=== PATIENT | female | born 1945 | race Caucasian/White ===

== ENCOUNTER 2016-08-31 20:03 | Inpatient (IN) | payer MEDICARE, OTHER ==
--- NOTE | ~2016-08-31 | DS ---
Discharge Summary [facility] [address] [place]. [address] NAME: JD MACARIO : 43 STATUS : DIS IN PAT#: [id number] AGE: 71 ADM/REG DATE : 08/31/16 MR#: [id number] REPORT SERV DATE: 09/04/16 DICTATED BY: JON WEEMS DATE: 09/03/16 REPORT STATUS : Draft TRANSCRIBED BY: MODL DATE: 09/03/16 ADMISSION DATE: 08/31/2016 DISCHARGE DATE: 09/03/2016 CONDITION ON DISCHARGE: Stable. DISPOSITION: Discharged to home with home health. The patient will be going home on the following new prescriptions and new equipment: 1. Nebulizer machine with tubing and mask and DuoNeb for nebulizer use q.4 hours p.r.n., a prescription for the above has been given. A bedside commode, a prescription for the above has been given as the patient has difficulty walking from COPD. 2. Other new medications include Bumex 1 mg once a day for chronic systolic and diastolic dysfunction of the heart and volume overload and diltiazem CD 120 mg p.o. daily #30, which she will continue for an episode of atrial fibrillation, that she had in the hospital that resolved with the Cardizem. 3. Other medications will also include Diflucan 150 mg p.o. daily for three days and this is for her generalized ring warm like rash and also her groin area rash and vaginal candidiasis. 4. Clotrimazole cream, apply b.i.d. for 14 days for the ringworm. DIAGNOSES ON DISCHARGE: Include: 1. Acute hypercapnic respiratory failure, this has resolved. Acute hypoxic respiratory failure - resolved. Chronic hypoxic respiratory failure from COPD in a nonsmoker - patient is chronically on 2 L of oxygen at home. 2. Chronic mild systolic and diastolic dysfunction of the heart which is stable. However, echocardiogram shows normal ejection fraction. Hence, this is probably HFpEF or heart failure with preserved ejection fraction - patient is doing well with a low dose of diuretics for this. 3. One episode of intermittent atrial fibrillation that resolved after Cardizem. Hence, the patient will be going home on p.o. diltiazem CD, which has kept her heart rate nicely controlled and the patient is not in atrial fibrillation anymore even though she has a few PVCs. 4. Acute encephalopathy upon admission, which completely resolved. 5. Other chronic medical issues include coronary artery disease, diabetes, hypercholesterolemia, hypertension, which are all stable. 6. A ringworm that seems to be somewhat generalized along with tinea cruris and some vaginal candidiasis according to patient, for which she is being treated with clotrimazole cream and Diflucan. This could be because the patient has been on antibiotics for sometime and also is diabetic and hence the reason for the above, but she is being treated as mentioned above. BRIEF HOSPITAL COURSE: Ms. Jd Macario is a 71-year-old white female patient, who was admitted with signs and symptoms as outlined in history and physical exam. Essentially, she was admitted with acute on chronic hypoxic respiratory failure. She was also found to be hypercapnic and with encephalopathy. Hence, she was admitted for a little while in the unit Discharge Summary [address] [address] NAME: JD MACARIO : 43 STATUS : DIS IN PAT#: [id number] AGE: 71 ADM/REG DATE : 08/31/16 MR#: [id number] REPORT SERV DATE: 09/04/16 DICTATED BY: JON WEEMS DATE: 09/03/16 REPORT STATUS : Draft TRANSCRIBED BY: ELMER DATE: 09/03/16 watched and then transferred to medical floor in stable condition. The patient continued to do well on the floor with supplemental oxygen but had one episode of intermittent atrial fibrillation. She was briefly placed on Cardizem drip and this was promptly discontinued once her atrial fibrillation resolved. Currently, the patient is not in atrial fibrillation. She has been in sinus rhythm for the last 24 hours and has a few infrequent PVCs. The patient has been started on diltiazem CD 120 mg once a day, and with this, her heart rate is nicely controlled and she is not in atrial fibrillation and is in sinus rhythm now. The patient chronically stays on oxygen at home at 2 L/minute, and hence, she is being sent home on that. Initially, she also had some volume overload and hyponatremia and some renal insufficiency when she came in but this has all resolved now. Hence, the patient is being sent home on the following medications: 1. As mentioned above. The new medications will be as dictated above, but in addition to this, her regular old medications will include:. 2. Aspirin 81 mg once a day. 3. Plavix 75 mg once a day. 4. Colace 100 mg p.o. b.i.d. 5. Prozac 60 mg once a day. 6. Levemir insulin 40 units subcu at bedtime and NovoLog sliding scale insulin. 7. Imdur 30 mg once a day. 8. Metoclopramide 10 mg p.o. daily. 9. Lopressor 50 mg p.o. q.p.m. 10.Protonix 40 mg p.o. b.i.d. 11.Spiriva as directed. 12.ProAir as directed. 13.Dulera 200/5 two puffs twice a day. 14.Roxicodone 5 mg p.o. q.6 hours p.r.n. In addition to this, the patient will also be on the following chronic medications: Bumex 1 mg once in the morning and diltiazem CD 120 mg once in the morning. She has done well with this medication regimen and hence a copy of this summary is to be sent to her PCP and also Dr. Osuna. I have spent about 40 minutes in coordinating discharge care of this patient including face- to-face encounter. At this time, her most recent labs show the following: Her CBC on 09/02/2016 shows a WBC count of 5.1, hemoglobin 8.5, hematocrit 30.4, and platelet count of 303. Her electrolyte profile shows a sodium of 134, a potassium 3.7, BUN 11, creatinine 0.9. The patient has chronic hyponatremia and now it is fairly stable at 134. Her BNP came down nicely and on 09/02/2016 it is 108. Again, her renal function profile that was repeated shows a sodium of 136, now BUN is 11, creatinine is 0.9. Magnesium is normal. Phosphorus is normal. She is being sent home in stable condition with home health nursing and with advice to follow up with Dr. Osuna as scheduled before. Discharge Summary [facility] [address] [place]. [address] NAME: JD MACARIO : 43 STATUS : DIS IN PAT#: [id number] AGE: 71 ADM/REG DATE : 08/31/16 MR#: [id number] REPORT SERV DATE: 09/04/16 DICTATED BY: JON EWEMS DATE: 09/03/16 REPORT STATUS : Draft TRANSCRIBED BY: ELMER DATE: 09/03/16 DANIELLA/ELMER Jon Weems M.D. / [id number] CC: Noe Juarez M.D.
--- NOTE | ~2016-08-31 | HP ---
History And Physical [facility] [address] [place]. [address] NAME: JANA MACARIO : 43 STATUS : ADM IN [facility]#: [id number] AGE: 71 ADM/REG DATE : 08/31/16 MR#: [id number] REPORT SERV DATE: 08/31/16 DICTATED BY: SATISH OSUNA DATE: 08/31/16 REPORT STATUS : Draft TRANSCRIBED BY: MODTyler DATE: 08/31/16 DATE OF ADMISSION: 08/31/2016 REASON FOR ADMISSION: Acute hypercapnic respiratory failure. HISTORY OF PRESENT ILLNESS: Ms. Macario is known to our practice. She is followed in our office and has had hospitalizations before because of problems with fluid overload and congestive heart failure. She has chronic obstructive lung disease, not associated with smoking and systolic diastolic congestive heart failure with chronic hypoxemia. She had been doing well earlier this week, developed a bit of a cough two days ago, but was still fine. Starting on the evening 24 hours before admission, she complained of more shortness of breath, and since then had become more hypoxic, more short of breath, and actually became somewhat encephalopathic and poorly responsive. She was taken to an outside hospital, where she was found to be hypercapnic and hypoxemic and started on BiPAP with improvement of her oxygenation and mental status. PAST MEDICAL HISTORY: Significant for coronary artery disease, chronic obstructive lung disease, CHF, ischemic cardiomyopathy, diabetes, hypercholesterolemia, and hypertension. REVIEW OF SYSTEMS: Her review of 10 systems was performed with help of her family who was at the bedside. SOCIAL HISTORY: Significant for remote short tobacco use. No alcohol abuse. FAMILY HISTORY: Noncontributory to this acute presentation. PHYSICAL EXAMINATION: GENERAL: She is awake and alert with stable vital signs, on BiPAP. HEENT: Normocephalic and atraumatic. NECK: Supple. No lymphadenopathy. No JVD. CHEST: Symmetric with good expansion bilaterally. She has occasional bilateral crackles with some crackles on the right base. CARDIOVASCULAR: She has S1 and S2, which are regular rate and rhythm. ABDOMEN: Benign. EXTREMITIES: She has no edema, no clubbing, no cyanosis. ASSESSMENT AND PLAN: 1. Respiratory failure. The patient has acute on chronic hypercapnic hypoxemic respiratory failure associated with fluid overload. She has been retaining more fluid at home and has a new right effusion. We have kept the patient on BiPAP and started her on diuretics and therapy for acute bronchitis. She is already doing better with improved arterial blood gas on her last blood gas prior to transfer. She has been started on deep venous thrombosis and gastrointestinal prophylaxis, and we will try and start weaning her off BiPAP in the morning. Care was discussed with the patient and her family, who was at the bedside. History And Physical [address] [address] NAME: JANA MACARIO : 43 STATUS : ADM IN [facility]#: [id number] AGE: 71 ADM/REG DATE : 08/31/16 MR#: [id number] REPORT SERV DATE: 08/31/16 DICTATED BY: SATISH OSUNA DATE: 08/31/16 REPORT STATUS : Draft TRANSCRIBED BY: ELMER DATE: 08/31/16 BENITO/ELMER Satish Osuna M.D. / [id number] CC: Ronda Hilton MD UNKNOWN
[~2016-08-31 20:03] MED LIST: *UNABLE3; ACET500CAP PO; ADVAIR250 INH; ASA5GR PO; ASAB PO; ASABAYER PO; ASAEC PO; BENGAY TOP; CRESTOR10 PO; DALIRESP500 MCG PO; DIOV80 PO; DIOVAN40 MG PO; DSS PO; DULERA 200 MCG/13 GM INH; FAMVIR 500 MG500 MG PO; FORTAMET1000 MG PO; FORTAMET500 MG PO; GLUCOPHAGE1000 MG PO; HYDROCODONE/APAP; ICY HOT16 % TOP; IMDUR30 PO; INSULIN SC; JANUVIA100 MG PO; KLONO1 PO; KLONO2 PO; L20 PO; L40 PO; LANTUS SC; LEVAQUIN750 MG PO; LEVEMFLXPN SC; LEVEMIR SC; LIPITOR80 MG PO; LOP50 PO; MCZ25 PO; METFORMIN PO; MUCINEX600 MG PO; NORCO1 TA1 PO; NORCO1 TA2 PO; NOVOLOG SC; OXYCOD PO; OXYGEN; PLAVIX PO; PRILO PO; PROAIR HFA INH; PROTONIX PO; PROVENTSOL INH; PROZAC PO; PROZAC40 MG PO; REG PO; SPIRIVA INH; STOOL SOFTEN100 MG PO; VENTOLIN HFA INH; ZOFRAN4 PO; [UNRECOGNIZED DRUG - OTHER]
[2016-09-01 04:24] LABS: BASOPHILS 0.2 %; BASOPHILS ABSOLUTE 0.01 10/3/uL (0.0-0.16); EOSINOPHILS 3.4 %; EOSINOPHILS ABSOLUTE 0.17 10/3/uL (0.0-0.53); HEMATOCRIT 29.9 % (36.0-48.0); HEMOGLOBIN 8.2 g/dL (12.0-16.0); IMMATURE GRANULOCYTES 0.4 %; IMMATURE GRANULOCYTES ABSOLUTE 0.02 10/3/uL (0.0-0.11); LYMPHOCYTES 24.4 %; LYMPHOCYTES ABSOLUTE 1.23 10/3/uL (0.67-4.30); MEAN CORPUS HGB CONC 27.4 g/dL (32.0-36.0); MEAN CORPUSCULAR HEMOGLOB 24.7 pg (26.0-34.0); MEAN CORPUSCULAR VOLUME 90.1 fL (80-100); MEAN PLATELET VOLUME 10.1 fL (9.2-13.0); MONOCYTES 6.9 %; MONOCYTES ABSOLUTE 0.35 10/3/uL (0.21-1.20); NEUTROPHILS 64.7 %; NEUTROPHILS ABSOLUTE 3.26 10/3/uL (2.02-8.40); PLATELET COUNT 292 10/3/uL (150-400); RED CELL COUNT 3.32 10/6/uL (4.0-5.6)
[2016-09-01 04:26] LABS: MANUAL DIFF NO %
[2016-09-01 04:41] LABS: CALCIUM, SERUM 8.3 MG/DL (8.5-10.4); CHLORIDE, SERUM 92 MMOL/L (96-112); CREATININE 0.82 MG/DL (0.55-1.02); GFR AFRICAN AMERICAN 83 ML/MIN (>=60); GFR NON AFRICAN AMERICAN 71 ML/MIN (>=60); SODIUM, SERUM 137 MMOL/L (135-148)
[2016-09-01 04:44] LABS: BUN (BLOOD UREA NITROGEN) 10 MG/DL (6-23); CO2 (CARBON DIOXIDE) 38 MMOL/L (24-34); GLUCOSE, SERUM 134 MG/DL (60-99)
[2016-09-02 06:32] LABS: BASOPHILS 0.2 %; BASOPHILS ABSOLUTE 0.01 10/3/uL (0.0-0.16); EOSINOPHILS 4.1 %; EOSINOPHILS ABSOLUTE 0.21 10/3/uL (0.0-0.53); HEMATOCRIT 30.4 % (36.0-48.0); HEMOGLOBIN 8.5 g/dL (12.0-16.0); IMMATURE GRANULOCYTES 0.2 %; IMMATURE GRANULOCYTES ABSOLUTE 0.01 10/3/uL (0.0-0.11); LYMPHOCYTES 33.9 %; LYMPHOCYTES ABSOLUTE 1.72 10/3/uL (0.67-4.30); MEAN CORPUSCULAR HEMOGLOB 24.6 pg (26.0-34.0); MEAN CORPUSCULAR VOLUME 88.1 fL (80-100); MEAN PLATELET VOLUME 9.9 fL (9.2-13.0); MONOCYTES 8.1 %; MONOCYTES ABSOLUTE 0.41 10/3/uL (0.21-1.20); NEUTROPHILS 53.5 %; NEUTROPHILS ABSOLUTE 2.72 10/3/uL (2.02-8.40); PLATELET COUNT 303 10/3/uL (150-400); RBC DISTRIBUTION WIDTH 17.9 % (12.0-16.0); RED CELL COUNT 3.45 10/6/uL (4.0-5.6); WHITE BLOOD CELLS 5.1 10/3/uL (4.5-10.5)
[2016-09-02 06:33] LABS: MANUAL DIFF NO %
[2016-09-02 06:47] LABS: ALBUMIN 2.6 G/DL (3.5-5.0); BUN (BLOOD UREA NITROGEN) 11 MG/DL (6-23); CALCIUM, SERUM 8.5 MG/DL (8.5-10.4); CHLORIDE, SERUM 89 MMOL/L (96-112); CO2 (CARBON DIOXIDE) 37 MMOL/L (24-34); CREATININE 0.93 MG/DL (0.55-1.02); GFR AFRICAN AMERICAN 71 ML/MIN (>=60); GFR NON AFRICAN AMERICAN 61 ML/MIN (>=60); PHOSPHORUS, SERUM 3.3 MG/DL (2.5-4.5); POTASSIUM, SERUM 3.6 MMOL/L (3.5-5.3); SODIUM, SERUM 136 MMOL/L (135-148)
[2016-09-02 06:50] LABS: BUN (BLOOD UREA NITROGEN) 11 MG/DL (6-23); CALCIUM, SERUM 8.5 MG/DL (8.5-10.4); CHLORIDE, SERUM 90 MMOL/L (96-112); CO2 (CARBON DIOXIDE) 37 MMOL/L (24-34); CREATININE 0.95 MG/DL (0.55-1.02); GFR AFRICAN AMERICAN 69 ML/MIN (>=60); GFR NON AFRICAN AMERICAN 60 ML/MIN (>=60); POTASSIUM, SERUM 3.7 MMOL/L (3.5-5.3); SODIUM, SERUM 134 MMOL/L (135-148)
[2016-09-02 06:52] LABS: GLUCOSE, SERUM 231 MG/DL (60-99)
[2016-09-02 06:53] LABS: GLUCOSE, SERUM 227 MG/DL (60-99)
[2016-09-02 07:24] LABS: PROCALCITONIN 0.08 ng/mL (<0.5)
[2016-09-03] MEDS ORDERED: FLUCON150 PO (12:33)
[2016-09-03] MEDS ORDERED: CLORTIMAZOLE EX (12:34)
[2016-09-03] MEDS ORDERED: BUM1 PO (12:35)
[2016-09-03] MEDS ORDERED: CARTIA XT120 MG/24 PO (12:42)
[2016-12-25] MEDS ORDERED: NEUR100 PO (21:54)
[2016-12-25] MEDS ORDERED: TURMERIC PO (21:57)
[2016-12-25] MEDS ORDERED: STIOLTO RESPIMAT4 GM INH (21:57)
[2016-12-25] MEDS ORDERED: BUM1 PO (21:57)
[2017-03-21] MEDS ORDERED: BUM1 PO (21:37)
[2017-03-21] MEDS ORDERED: BROVANA15 MCG INH (21:37)
[2017-03-21] MEDS ORDERED: CARTIA XT120 MG/24 PO (21:38)
[2017-03-21] MEDS ORDERED: DSS PO (21:39)
[2017-03-21] MEDS ORDERED: DUONEB INH (21:40)
[2017-03-21] MEDS ORDERED: P20 PO (21:40)
[2017-03-21] MEDS ORDERED: BISR PR (21:40)
[2017-03-21] MEDS ORDERED: ELIQUIS 5 MG TAB5 MG PO (21:41)
[2017-03-21] MEDS ORDERED: LOP50 PO (21:41)
[2017-03-21] MEDS ORDERED: NEUR100 PO (21:41)
[2017-03-21] MEDS ORDERED: MOMUD PO (21:42)
[2017-03-21] MEDS ORDERED: NOVOLOG SC ×2 (21:42→21:43)
[2017-03-21] MEDS ORDERED: NYSTATPOW TOP (21:43)
[2017-03-21] MEDS ORDERED: PLAVIX PO (21:43)
[2017-03-21] MEDS ORDERED: REG5 PO (21:44)
[2017-03-21] MEDS ORDERED: PULRESP.5 INH (21:44)
[2017-03-21] MEDS ORDERED: PROZAC40 MG PO (21:44)
[2017-03-21] MEDS ORDERED: VENTOLIN HFA INH (21:45)
[2017-03-21] MEDS ORDERED: ULTRAM50 PO (21:45)
[2017-03-21] MEDS ORDERED: T PO (21:45)
[2017-03-21] MEDS ORDERED: MAGOX4 PO (21:47)
[2017-03-21] MEDS ORDERED: LEVEMIR SC (21:47)
== END 2016-09-03 13:37 | disposition home health service (06) | DRG 291 ==
LOC: CCU 20:03 → 1SO 09-01 14:16
PROVIDERS: Internal Medicine Critical Care Medicine; Internal Medicine Pulmonary Disease; Nurse Practitioner Family
PROC: 5A09357 Assistance with Respiratory Ventilation, Less than 24 Consecutive Hours, Continuous Positive Airway Pressure (ICD-10-PCS; principal; 2016-08-31)
DX: I11.0 Hypertensive heart disease with heart failure (principal); J96.21 Acute and chronic respiratory failure with hypoxia; G93.40 Encephalopathy, unspecified; E87.1 Hypo-osmolality and hyponatremia; J44.0 Chronic obstructive pulmonary disease with (acute) lower respiratory infection; J96.22 Acute and chronic respiratory failure with hypercapnia; J44.1 Chronic obstructive pulmonary disease with (acute) exacerbation; Z99.81 Dependence on supplemental oxygen; I48.91 Unspecified atrial fibrillation; B35.6 Tinea cruris; I50.23 Acute on chronic systolic (congestive) heart failure; J20.9 Acute bronchitis, unspecified; E87.70 Fluid overload, unspecified; E78.5 Hyperlipidemia, unspecified; E11.9 Type 2 diabetes mellitus without complications; B35.9 Dermatophytosis, unspecified; B37.3 Candidiasis of vulva and vagina; I25.5 Ischemic cardiomyopathy; E78.00 Pure hypercholesterolemia, unspecified; I25.10 Atherosclerotic heart disease of native coronary artery without angina pectoris; Z87.891 Personal history of nicotine dependence; Z79.82 Long term (current) use of aspirin; Z79.4 Long term (current) use of insulin; Z79.02 Long term (current) use of antithrombotics/antiplatelets; Z79.891 Long term (current) use of opiate analgesic; Z79.899 Other long term (current) drug therapy
CPT/HCPCS: 71010; 80048; 80069; 82962; 83735; 83880; 84145; 85025; 87641; 93005; 94640; 94660; 97162-GP; 97166-GO; A9270-GY; C9113; G8978-CJ-GP; G8979-CI-GP; G8987-CK-GO; G8988-CJ-GO; J1956

== ENCOUNTER 2017-03-09 11:05 | Inpatient (IN) | payer MEDICARE, OTHER ==
[~2017-03-09] VITALS: Ht 165.1 cm; Wt 94.5 kg
--- NOTE | ~2017-03-09 | HP ---
History And Physical [facility] [address] [place]. [address] NAME: JANA ROACH : 43 STATUS : DIS IN PAT#: [id number] AGE: 72 ADM/REG DATE : 03/09/17 MR#: [id number] REPORT SERV DATE: 03/09/17 DICTATED BY: REECE ARNDT DATE: 03/09/17 REPORT STATUS : Draft TRANSCRIBED BY: MODTyler DATE: 03/09/17 DATE OF ADMISSION: 03/09/2017 HISTORY OF PRESENT ILLNESS: This is a 72-year-old white female, brought to the emergency room directly from the pulmonary office today 03/09/2017, because of worsening difficulty breathing. She has also had some wheezing, some cough with minimal phlegm. She is usually followed by Dr. Osuna for her severe COPD, chronic respiratory failure, and hypoxemia. Past medical problems include severe COPD, cor pulmonale, dyslipidemia, coronary artery disease with previous CABG, history of DVT, type 2 diabetes, GERD, hypertension, peptic ulcer disease, obstructive sleep apnea. The patient was found to have hypercapnic respiratory failure with a pH of 7.28, pCO2 of 70, PO2 of 88, bicarb 32.1, and O2 saturation 95%. First time, we saw her she was doing well on nasal cannula only. She did have elevated troponins and Cardiology was consulted, and they put her on a heparin drip and cycling enzymes right now. Again, she is a previous CABG patient in the past. Other acute issues include an elevated potassium of 6 and this was treated in the emergency room and we are repeating a metabolic panel to get a followup potassium level. Her creatinine level was also mildly elevated at 1.56 and her sodium level is down to 125. 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 She did have an echo that shows normal LV function in the past with normal RV size and function. This information came from cardiology note from 08/2016. She did have a fall recently and fractured bones in her left arm and supposed to go see Orthopedics. History is limited from the patient due to some altered mental status and some confusion. REVIEW OF SYSTEMS: Difficult to obtain, but no obvious fever or chills. PAST MEDICAL HISTORY: As above in HPI. In addition, she does have known peripheral vascular disease and has had angioplasty and stenting of right common iliac artery, history of ankle fracture. ALLERGIES: NAPROXEN. HOME MEDICATIONS: Reviewed. FAMILY HISTORY: Noncontributory. SOCIAL HISTORY: No alcohol use, former tobacco user. PHYSICAL EXAMINATION: VITAL SIGNS: Per nursing flow sheet. GENERAL: No acute distress, but mildly dyspneic, able to have some conversation which is an improvement from earlier. ENT: Normocephalic, atraumatic. Pupils are equal. NEURO: Moving all extremities. Answers questions. NECK: Trachea midline. History And Physical [address] [place]. [address] NAME: JANA ROACH : 43 STATUS : DIS IN PAT#: [id number] AGE: 72 ADM/REG DATE : 03/09/17 MR#: [id number] REPORT SERV DATE: 03/09/17 DICTATED BY: REECE ARNDT DATE: 03/09/17 REPORT STATUS : Draft TRANSCRIBED BY: ELMER DATE: 03/09/17 HEART: Regular rate and rhythm. No murmurs. LUNGS: Diminished breath sounds bilaterally. No obvious wheezing. GI: Soft, nontender, nondistended. EXTREMITIES: No significant edema or cyanosis. CHEST: Previous sternotomy scar. LABORATORY DATA: Labs and radiology studies reviewed. ASSESSMENT/PLAN: 1. Eilar-se-vszfrtz hypercapnic and hypoxic respiratory failure. 2. Severe chronic obstructive pulmonary disease with exacerbation. 3. Probable demand ischemia with elevated troponin. 4. Hyponatremia with acute kidney injury. 5. Type 2 diabetes with hyperglycemia. 6. Hyperkalemia. 7. Leukocytosis. 8. Anemia. The patient will be admitted to the ICU for observation. Currently, mental status is improving. We will hold off on BiPAP right now, but may have to institute this. She will be on DuoNeb every four hours. Hold off on her MDI inhalers for now. Put her on some Solu- Medrol steroids and hold off on antibiotics for now. Check a procalcitonin level. Cardiology is following for the elevated troponins and likely demand ischemia. She is currently on a heparin drip. They were following enzymes. We will hold off on any diuretics given the hyponatremia, worsening creatinine level. May have to get Nephrology involved given this questionable history of SIADH. Since she is not eating or we are not giving her any Levemir at this point, putting on level 3 sliding scale, but given the steroids, may have to end up either starting Levemir back or potentially even insulin drip. Medications were already reconciled by Cardiology. 35 minutes critical care time. CEP/MODL Reece Arndt, DO / [id number] CC: Ihsan Mendez
--- NOTE | ~2017-03-09 | DS ---
Discharge Summary [facility] [address] [place]. [address] NAME: JANA ROACH : 43 STATUS : DIS IN PAT#: [id number] AGE: 72 ADM/REG DATE : 03/09/17 MR#: [id number] REPORT SERV DATE: 03/16/17 DICTATED BY: STACEY ALBERTO DATE: 03/15/17 REPORT STATUS : Draft TRANSCRIBED BY: ELMER DATE: 03/15/17 ADMISSION DATE: 03/09/2017 DISCHARGE DATE: 03/15/2017 PRINCIPAL DIAGNOSIS: Acute on chronic hypercapnic respiratory failure. SECONDARY DIAGNOSES: Exacerbation of chronic obstructive pulmonary disease, cor pulmonale, anasarca, type 2 diabetes, generalized weakness, iron deficiency. HISTORY OF PRESENT ILLNESS: Please see Dr. Brown's dictation on 03/09/2017. HOSPITAL COURSE: Admitted to the ICU. Please see interim summary by the core maker on 03/12/2017. Subsequent hospital course, the patient actually did well on the floor. Arrangements were made for trilogy. She received physical therapy, continuation of aerosol treatments. Her respirations were less labored and she actually was able to be alf facility on 03/14/2017, however, did not leave until a.m. 03/15/2017, and she went there in satisfactory condition. Diet as tolerated. Physical therapy, occupational therapy per facility. On the following medications, Lovenox, Reglan, tramadol, Levemir, DuoNeb, oxycodone, Lopressor, Cardizem CD, prednisone taper, aspirin, Neurontin, Colace, Prozac, Plavix. Should be noted that the patient received an infusion of iron dextran prior to discharge. She will follow up with Dr. Ihsan Mendez following alf facility discharge. Greater than 30 minutes was spent in the care of this patient in discharge planning on discharge day. MUSTAPHA/ELMER Stacey Alberto M.D. / [id number] CC: Noe Melvin PAUL E
--- NOTE | ~2017-03-09 | CN ---
Consultation Report [facility] [address] [place]. [address] NAME: JD ROACH : 43 STATUS : DIS IN PAT#: [id number] AGE: 72 ADM/REG DATE : 03/09/17 MR#: [id number] REPORT SERV DATE: 03/09/17 DICTATED BY: DATE: REPORT STATUS : Draft TRANSCRIBED BY: MODL DATE: 03/09/17 CARDIOLOGY CONSULTATION DATE OF CONSULTATION: 03/09/2017 REASON FOR CONSULTATION: Positive troponin. HISTORY: Ms. Jd Roach is a medically complicated 72-year-old female with significant COPD and chronic hypoxia. She also has a history of coronary artery disease status post CABG, ischemic cardiomyopathy, diabetes mellitus, history of right ankle fracture, history of hypertension, hyperlipidemia, as well as peripheral vascular disease, who also was recently hospitalized approximately 1 week ago with an arm fracture who presents today after following up in her pulmonary critical care office and noted to be severely hypoxic. Apparently, the patient was seen last week for this right upper extremity fracture, and was offered the opportunity to stay, but ultimately decided she would go home with pulmonary followup for COPD. So, she was following up today with her nurse practitioner in an outpatient setting, when it was noted the patient had hypoxia. She was 82% on 3 L nasal cannula and actually had a low oxygen of 71% on 6 L nasal cannula. In conjunction with some very impressive hypotension, told us by the office as 80s over 40s, as well as a pulse of 42, she was transferred to our emergency department for urgent evaluation. In the ER, an EKG was suggestive of some changes in her T-waves, and an initial troponin was positive at 0.9. However, further workup obtained for what was more likely the primary problem for Ms. Roach which is to say a hypercarbic hypoxic respiratory failure. She had ABG which was 7.28, pCO2 of 70, and a pO2 of 88. Her bicarb was 32. She was placed on BiPAP, and her mentation improved somewhat, however, she still, while being interviewed by me in entire length, had significantly garbled speech and a tremor that she says has been going on for weeks to months. [facility] was consulted to evaluate this troponinemia. PAST MEDICAL HISTORY: 1. Status post recent right upper extremity fracture. 2. COPD with chronic hypoxia. 3. Coronary artery disease, status post CABG. 4. Carotid artery disease. 5. Diabetes mellitus. 6. Hypertension. 7. Hyperlipidemia. 8. Peripheral vascular disease. 9. History of shock when presenting in respiratory failure and NSTEMI with a management recommendation for medical therapy at that time. Consultation Report [facility] [address] [place]. [address] NAME: JD ROACH : 43 STATUS : DIS IN PAT#: [id number] AGE: 72 ADM/REG DATE : 03/09/17 MR#: [id number] REPORT SERV DATE: 03/09/17 DICTATED BY: DATE: REPORT STATUS : Draft TRANSCRIBED BY: MODL DATE: 03/09/17 Please note that the patient has had some recent angiographic findings which revealed an EF of 40%, a right dominant system with a diffuse LAD 90% occluded and diffuse disease in the left circumflex and irregularities in the RCA. She has a 20% to 50% anastomosis in her CARSON and a 20% to 50% anastomosis distally in that CARSON. Her CABG is notable for DE PAZ to the LAD, and reverse saphenous vein graft to the diagonal, RCA, and OM. FAMILY HISTORY: She denies. She has a history in her family of heart disease and hypertension. SOCIAL HISTORY: She is a never smoker, and there is no history of alcohol use. ALLERGIES: THE PATIENT HAS ALLERGIES TO DYE, NAPROXEN SODIUM, AND QUININE. MEDICATIONS: 1. Albuterol 1 puff q.6 hours p.r.n. 2. Aspirin 325 taken half tablet daily, recommended to be taking 81 mg on last discharge. 3. Bumex 1 mg p.o. daily. 4. Clopidogrel 75 mg p.o. daily. 5. Diltiazem ER 120 mg p.o. daily. 6. Docusate sodium 100 mg p.o. twice a day. 7. Fluoxetine 40 mg p.o. daily. 8. Gabapentin 200 mg p.o. three times daily. 9. Insulin aspart sliding scale. 10.Insulin detemir 50 units subcu at bedtime. 11.Isosorbide mononitrate 30 mg p.o. daily. 12.Metoclopramide 10 mg p.o. daily. 13.Metoprolol tartrate 50 mg p.o. daily. 14.Tiotropium/olodaterol 2 puffs inhaled daily. 15.Turmeric. REVIEW OF SYSTEMS: A 10-point review of systems was attempted, but the patient is unfortunately unable to communicate clearly due to what is suspected to be an altered mental status. PHYSICAL EXAMINATION: VITAL SIGNS: Blood pressure 105/51, temperature 98.1, pulse 72, breathing 24 times a minute. GENERAL: Ms. Roach is an older than stated age-appearing female who is in moderate distress. She is wearing BiPAP when I enter the room. HEENT: Normocephalic, atraumatic. EOMI. Mucous membranes were dry. She is edentulous. NECK: Supple. JVP was not felt to be elevated. LUNGS: Distant breath sounds bilaterally without obvious rales anteriorly bilaterally. CARDIOVASCULAR: The patient is in regular rate and rhythm without appreciable murmurs, rubs, or gallops. CHEST: She is status post median sternotomy. EXTREMITIES: She is in a cast on the right upper extremity. She has no clubbing, cyanosis, Consultation Report [address] [place]. [address] NAME: JD ROACH : 43 STATUS : DIS IN PAT#: [id number] AGE: 72 ADM/REG DATE : 03/09/17 MR#: [id number] REPORT SERV DATE: 03/09/17 DICTATED BY: DATE: REPORT STATUS : Draft TRANSCRIBED BY: MODL DATE: 03/09/17 or edema in the lower extremities. NEURO: The patient is alert and oriented, though her speech is rather garbled. It should be noted that this was new compared to when she was seen today in a clinic setting. EXTREMITIES: She also has a tremor which may represent asterixis. LAB DATA: A BMP is notable for hyponatremia with a sodium of 125, potassium of 6, chloride of 89, bicarb of 32, a creatinine of 1.6, and a BUN 29. White count is elevated at 13.8, hemoglobin 8.5, hematocrit is 30, and platelets are 356. She had an ABG revealing a pH of 7.28, pCO2 of 70, pO2 of 88, and a bicarb of 32.1. An EKG was obtained and that revealed the following; the patient is in normal sinus rhythm favoring the right bundle. There are some T-wave inversion in lead V2 that would potentially suggest ischemia and nonspecific findings as they progressed up to the lateral leads. Chest x-ray reportedly unremarkable with respect to infiltrate. However, a small right pleural effusion was noted, and there are lateral sixth and seventh rib fractures suggesting subacute chronic fractures. ASSESSMENT AND PLAN: Ms. Jd Roach is a 72-year-old female who presents with acute hypercarbic respiratory failure and instantly discovered troponinemia. She is not endorsing any chest pain at this time, and she states that her shortness of breath is much better after being placed on BiPAP. She absolutely has some obstructive disease in her coronary arteries, and since her last catheterization, medical management was favored. However, I think much more pressing concern at this time is the fact that she was hypoxic on admission, with hypotension, a new onset hyponatremia, as well as anemia. I think all of the etiologies for her altered mental status should be considered and evaluated. Furthermore, given that I found a little bit of asterixis on admission, I think it would be reasonable for her to be evaluated for hyperammonemia. I am also concerned with the fact that she is hyperkalemic, though she was treated for this acutely in the emergency department. She does have EKG changes as well as a troponinemia. I think it is reasonable to put her on heparin in order to treat her medically, and I would recommend continuing aspirin 81 mg as well as clopidogrel 75 mg p.o. daily. Given that she has been reasonably hypotensive, I think it would be reasonable to hold her isosorbide mononitrate and diltiazem at this time. I do not think the metoprolol that she is on, at 50 mg daily, or perhaps 50 mg b.i.d. would be very consequential for her. I would like her to be admitted to the director of people service, because she may have a need for more aggressive oxygenation needs in the next hours to days. However, this is hopefully the case that she has stabilized out. Next week, I think it would be reasonable to figure out whether or not any further workup is Consultation Report [facility] [place] [id number] [facility] [id number] NAME: JD ROACH : 43 STATUS : DIS IN PAT#: [id number] AGE: 72 ADM/REG DATE : 03/09/17 MR#: [id number] REPORT SERV DATE: 03/09/17 DICTATED BY: DATE: REPORT STATUS : Draft TRANSCRIBED BY: ELMER DATE: 03/09/17 warranted based on her primary symptoms. In the absence of chest pain, however, as well as these inciting events, I think it is very reasonable to hold off on left heart catheterization, as medical management was recommended at the last visit. However, if chest pain were to happen, or if the patient were to decompensate and complain of any further signs worrisome for hyperacute ACS, left heart catheterization could be considered. Lastly, we will be recommending an echocardiogram. [facility] will continue to follow. Thank you for this interesting consultation. MANUEL/ELMER Jef Esteban IV, MD / [id number] CC: Noe Cristina
[~2017-03-09 11:05] MED LIST changes: +BUM1 PO; +CARTIA XT120 MG/24 PO; +CLORTIMAZOLE EX; +FLUCON150 PO; +NEUR100 PO; +STIOLTO RESPIMAT4 GM INH; +TURMERIC PO
[2017-03-09 11:20] LABS: ALLENS TEST Pos; BE (BASE EXCESS) 4.1 MEQ/L (0 +/- 2.5); CARBOXYHEMOGLOBIN 2.8 % (0-3); HCO3 (ACTUAL BICARBONATE) 32.1 MEQ/L (23-27); HEMOBLOGIN CONTENT 9.2 G/DL (12-16); INSTRUMENT SERIAL # 8087; METHEMOGLOBIN 0.3 % (0-3); O2 CONTENT 12.1 VOL% (18-24); OPERATOR ID 14335; PCO2 (CO2 TENSION) 70 MMHG (35-45); PO2 (O2 TENSION) 88 MMHG (79-93); SAMPLE Arterial; pH 7.28 (7.37-7.43)
[2017-03-09 12:01] LABS: BASOPHILS 0.2 %; BASOPHILS ABSOLUTE 0.03 10/3/uL (0.0-0.16); EOSINOPHILS 0.5 %; EOSINOPHILS ABSOLUTE 0.07 10/3/uL (0.0-0.53); ER CBC TAT 0 Hrs 13 Mins; HEMATOCRIT 29.7 % (36.0-48.0); HEMOGLOBIN 8.5 g/dL (12.0-16.0); IMMATURE GRANULOCYTES 0.4 %; IMMATURE GRANULOCYTES ABSOLUTE 0.05 10/3/uL (0.0-0.11); LYMPHOCYTES 10.6 %; LYMPHOCYTES ABSOLUTE 1.47 10/3/uL (0.67-4.30); MEAN CORPUS HGB CONC 28.6 g/dL (32.0-36.0); MEAN CORPUSCULAR HEMOGLOB 25.2 pg (26.0-34.0); MEAN CORPUSCULAR VOLUME 88.1 fL (80-100); MEAN PLATELET VOLUME 10.6 fL (9.2-13.0); MONOCYTES ABSOLUTE 1.39 10/3/uL (0.21-1.20); NEUTROPHILS 78.3 %; NEUTROPHILS ABSOLUTE 10.83 10/3/uL (2.02-8.40); PLATELET COUNT 356 10/3/uL (150-400); RBC DISTRIBUTION WIDTH 16.8 % (12.0-16.0); RED CELL COUNT 3.37 10/6/uL (4.0-5.6); WHITE BLOOD CELLS 13.8 10/3/uL (4.5-10.5)
[2017-03-09 12:02] LABS: MANUAL DIFF NO %
[2017-03-09 12:05] LABS: INTERNATIONAL NORMAL RATI 1.1 UNITS (-); PARTIAL THROMBO TIME 23.3 SEC (22.5-37.2); PROTIME (NOT ORD) 14.4 SEC (12.0-14.5)
[2017-03-09 12:11] LABS: LACTATE 1.7 MMOL/L (0.3-2.4)
[2017-03-09 12:12] LABS: BUN (BLOOD UREA NITROGEN) 29 MG/DL (6-23); CALCIUM, SERUM 8.2 MG/DL (8.5-10.4); CHLORIDE, SERUM 89 MMOL/L (96-112); CO2 (CARBON DIOXIDE) 33 MMOL/L (24-34); CREATININE 1.56 MG/DL (0.55-1.02); GFR AFRICAN AMERICAN 38 ML/MIN (>=60); GFR NON AFRICAN AMERICAN 33 ML/MIN (>=60); GLUCOSE, SERUM 260 MG/DL (60-99); SODIUM, SERUM 125 MMOL/L (135-148)
[2017-03-09 12:13] LABS: CHEST PAIN PROFILE TAT 0 Hrs 25 Mins; TROPONIN I 0.95 NG/ML (<0.05)
[2017-03-09] MEDS ORDERED: VENTOLIN HFA INH (12:26)
[2017-03-09] MEDS ORDERED: DSS PO (12:27)
[2017-03-09] MEDS ORDERED: CARTIA XT120 MG/24 PO (12:27)
[2017-03-09] MEDS ORDERED: PROZAC40 MG PO (12:27)
[2017-03-09] MEDS ORDERED: PLAVIX PO (12:27)
[2017-03-09] MEDS ORDERED: ASA5GR PO (12:27)
[2017-03-09] MEDS ORDERED: NEUR100 PO (12:28)
[2017-03-09] MEDS ORDERED: BUM1 PO (12:28)
[2017-03-09] MEDS ORDERED: LEVEMIR SC (12:29)
[2017-03-09] MEDS ORDERED: NOVOLOG SC (12:29)
[2017-03-09] MEDS ORDERED: LOP50 PO (12:30)
[2017-03-09] MEDS ORDERED: IMDUR30 PO (12:30)
[2017-03-09] MEDS ORDERED: REG5 PO (12:30)
[2017-03-09] MEDS ORDERED: TUMERIC PO (12:31)
[2017-03-09] MEDS ORDERED: STIOLTO RESPIMAT4 GM INH (12:31)
[2017-03-09 15:34] LABS: BUN (BLOOD UREA NITROGEN) 28 MG/DL (6-23); CALCIUM, SERUM 8.1 MG/DL (8.5-10.4); CHLORIDE, SERUM 94 MMOL/L (96-112); CO2 (CARBON DIOXIDE) 31 MMOL/L (24-34); GFR AFRICAN AMERICAN 43 ML/MIN (>=60); GFR NON AFRICAN AMERICAN 37 ML/MIN (>=60); GLUCOSE, SERUM 247 MG/DL (60-99); PHOSPHORUS, SERUM 3.7 MG/DL (2.5-4.5); SODIUM, SERUM 131 MMOL/L (135-148)
[2017-03-09 20:15] LABS: B NATRIURETIC PEPTIDE (BNP) 662.1 PG/ML (< 100.0)
[2017-03-09 20:23] LABS: BUN (BLOOD UREA NITROGEN) 27 MG/DL (6-23); CALCIUM, SERUM 8.1 MG/DL (8.5-10.4); CHLORIDE, SERUM 94 MMOL/L (96-112); CO2 (CARBON DIOXIDE) 29 MMOL/L (24-34); CPK (IF ELEVATED MB BANDS) 67 U/L (0-200); FREE T4 1.09 NG/DL (0.76-1.46); GFR AFRICAN AMERICAN 47 ML/MIN (>=60); GFR NON AFRICAN AMERICAN 41 ML/MIN (>=60); PHOSPHORUS, SERUM 3.2 MG/DL (2.5-4.5); POTASSIUM, SERUM 5.1 MMOL/L (3.5-5.3); SODIUM, SERUM 130 MMOL/L (135-148)
[2017-03-09 20:26] LABS: GLUCOSE, SERUM 317 MG/DL (60-99); TROPONIN I 0.75 NG/ML (<0.05)
[2017-03-09 20:30] LABS: PROCALCITONIN 0.25 ng/mL (<0.5)
[2017-03-09 20:31] LABS: AMPHETAMINES (NOT ORD) NEG (NEG); BARBITURATES (NOT ORDERED NEG (NEG); BENZODIAZEPINES (NOT ORD) NEG (NEG); CANNABINOIDS (THC) NEG (NEG); COCAINE (NOT ORDERED) NEG (NEG); OPIATES NEG (NEG); PHENCYCLIDINE(PCP) NEG (NEG); TRICYCLICS NEG (NEG)
[2017-03-09 22:29] LABS: GLYCOHEMOGLOBIN (HbA1c) 9.3 % (4.7-6.1)
[2017-03-10 03:14] LABS: BASOPHILS 0 %; EOSINOPHILS 0 %; HEMOGLOBIN 7.6 g/dL (12.0-16.0); IMMATURE GRANULOCYTES 0.4 %; IMMATURE GRANULOCYTES ABSOLUTE 0.03 10/3/uL (0.0-0.11); LYMPHOCYTES 6.6 %; LYMPHOCYTES ABSOLUTE 0.52 10/3/uL (0.67-4.30); MEAN CORPUS HGB CONC 28.9 g/dL (32.0-36.0); MEAN CORPUSCULAR HEMOGLOB 25.4 pg (26.0-34.0); MEAN PLATELET VOLUME 10.2 fL (9.2-13.0); MONOCYTES 3.8 %; NEUTROPHILS 89.2 %; NEUTROPHILS ABSOLUTE 6.99 10/3/uL (2.02-8.40); PLATELET COUNT 299 10/3/uL (150-400); RBC DISTRIBUTION WIDTH 16.8 % (12.0-16.0); RED CELL COUNT 2.99 10/6/uL (4.0-5.6)
[2017-03-10 03:15] LABS: HEMATOCRIT 26.3 % (36.0-48.0); MANUAL DIFF NO %; PARTIAL THROMBO TIME 114.8 SEC (22.5-37.2); WHITE BLOOD CELLS 7.8 10/3/uL (4.5-10.5)
[2017-03-10 03:22] LABS: CALCIUM, SERUM 8.2 MG/DL (8.5-10.4); CHLORIDE, SERUM 94 MMOL/L (96-112); CPK (IF ELEVATED MB BANDS) 57 U/L (0-200); CREATININE 0.97 MG/DL (0.55-1.02); GFR AFRICAN AMERICAN 67 ML/MIN (>=60); GFR NON AFRICAN AMERICAN 58 ML/MIN (>=60); GLUCOSE, SERUM 261 MG/DL (60-99); PHOSPHORUS, SERUM 2.4 MG/DL (2.5-4.5); POTASSIUM, SERUM 4.5 MMOL/L (3.5-5.3); SODIUM, SERUM 133 MMOL/L (135-148)
[2017-03-10 03:23] LABS: BUN (BLOOD UREA NITROGEN) 23 MG/DL (6-23); CO2 (CARBON DIOXIDE) 34 MMOL/L (24-34); TROPONIN I 0.61 NG/ML (<0.05)
[2017-03-10 10:30] LABS: TROPONIN I 0.44 NG/ML (<0.05)
[2017-03-11 04:43] LABS: BASOPHILS 0.1 %; BASOPHILS ABSOLUTE 0.01 10/3/uL (0.0-0.16); EOSINOPHILS 0 %; HEMATOCRIT 27.4 % (36.0-48.0); HEMOGLOBIN 7.6 g/dL (12.0-16.0); IMMATURE GRANULOCYTES 0.3 %; IMMATURE GRANULOCYTES ABSOLUTE 0.03 10/3/uL (0.0-0.11); LYMPHOCYTES 13.4 %; LYMPHOCYTES ABSOLUTE 1.26 10/3/uL (0.67-4.30); MEAN CORPUS HGB CONC 27.7 g/dL (32.0-36.0); MEAN CORPUSCULAR VOLUME 90.1 fL (80-100); MEAN PLATELET VOLUME 10.3 fL (9.2-13.0); MONOCYTES 8.1 %; MONOCYTES ABSOLUTE 0.76 10/3/uL (0.21-1.20); NEUTROPHILS 78.1 %; NEUTROPHILS ABSOLUTE 7.31 10/3/uL (2.02-8.40); PLATELET COUNT 295 10/3/uL (150-400); RED CELL COUNT 3.04 10/6/uL (4.0-5.6); WHITE BLOOD CELLS 9.4 10/3/uL (4.5-10.5)
[2017-03-11 04:46] LABS: MANUAL DIFF NO %
[2017-03-11 04:47] LABS: ALBUMIN 2.7 G/DL (3.5-5.0); BUN (BLOOD UREA NITROGEN) 20 MG/DL (6-23); CALCIUM, SERUM 8.6 MG/DL (8.5-10.4); CHLORIDE, SERUM 95 MMOL/L (96-112); CO2 (CARBON DIOXIDE) 35 MMOL/L (24-34); CREATININE 0.73 MG/DL (0.55-1.02); GFR AFRICAN AMERICAN 95 ML/MIN (>=60); GFR NON AFRICAN AMERICAN 82 ML/MIN (>=60); GLUCOSE, SERUM 233 MG/DL (60-99); PHOSPHORUS, SERUM 2.4 MG/DL (2.5-4.5); POTASSIUM, SERUM 4.7 MMOL/L (3.5-5.3); SODIUM, SERUM 134 MMOL/L (135-148)
[2017-03-12 05:00] LABS: ALBUMIN 2.5 G/DL (3.5-5.0); CALCIUM, SERUM 8.1 MG/DL (8.5-10.4); CHLORIDE, SERUM 96 MMOL/L (96-112); CO2 (CARBON DIOXIDE) 37 MMOL/L (24-34); CREATININE 0.57 MG/DL (0.55-1.02); GFR AFRICAN AMERICAN 107 ML/MIN (>=60); GFR NON AFRICAN AMERICAN 92 ML/MIN (>=60); PHOSPHORUS, SERUM 2.3 MG/DL (2.5-4.5); POTASSIUM, SERUM 4.2 MMOL/L (3.5-5.3); SODIUM, SERUM 137 MMOL/L (135-148)
[2017-03-12 05:01] LABS: BUN (BLOOD UREA NITROGEN) 13 MG/DL (6-23); GLUCOSE, SERUM 77 MG/DL (60-99)
[2017-03-12 05:16] LABS: BASOPHILS 0.1 %; BASOPHILS ABSOLUTE 0.01 10/3/uL (0.0-0.16); EOSINOPHILS 0.4 %; EOSINOPHILS ABSOLUTE 0.05 10/3/uL (0.0-0.53); HEMATOCRIT 27.3 % (36.0-48.0); HEMOGLOBIN 7.6 g/dL (12.0-16.0); IMMATURE GRANULOCYTES 0.3 %; IMMATURE GRANULOCYTES ABSOLUTE 0.04 10/3/uL (0.0-0.11); LYMPHOCYTES 23.8 %; LYMPHOCYTES ABSOLUTE 2.73 10/3/uL (0.67-4.30); MEAN CORPUS HGB CONC 27.8 g/dL (32.0-36.0); MEAN CORPUSCULAR HEMOGLOB 25.2 pg (26.0-34.0); MEAN CORPUSCULAR VOLUME 90.4 fL (80-100); MEAN PLATELET VOLUME 10.5 fL (9.2-13.0); MONOCYTES 7.9 %; NEUTROPHILS 67.5 %; NEUTROPHILS ABSOLUTE 7.73 10/3/uL (2.02-8.40); PLATELET COUNT 344 10/3/uL (150-400); RBC DISTRIBUTION WIDTH 17.2 % (12.0-16.0); RED CELL COUNT 3.02 10/6/uL (4.0-5.6); WHITE BLOOD CELLS 11.5 10/3/uL (4.5-10.5)
[2017-03-12 05:19] LABS: MANUAL DIFF NO %
[2017-03-13 05:14] LABS: BE (BASE EXCESS) 17.8 MEQ/L (0 +/- 2.5); CARBOXYHEMOGLOBIN 2.6 % (0-3); HCO3 (ACTUAL BICARBONATE) 44.9 MEQ/L (23-27); INSTRUMENT SERIAL # 8087; METHEMOGLOBIN 0.3 % (0-3); O2 CONTENT 11.9 VOL% (18-24); PCO2 (CO2 TENSION) 72 MMHG (35-45); PO2 (O2 TENSION) 80 MMHG (79-93); SAMPLE Arterial; pH 7.41 (7.37-7.43)
[2017-03-13 05:15] LABS: ALLENS TEST Pos; OPERATOR ID 33449
[2017-03-14 05:17] LABS: BASOPHILS 0 %; EOSINOPHILS 1.9 %; EOSINOPHILS ABSOLUTE 0.16 10/3/uL (0.0-0.53); HEMATOCRIT 29.4 % (36.0-48.0); HEMOGLOBIN 8.3 g/dL (12.0-16.0); IMMATURE GRANULOCYTES 0.4 %; IMMATURE GRANULOCYTES ABSOLUTE 0.03 10/3/uL (0.0-0.11); LYMPHOCYTES 24.5 %; LYMPHOCYTES ABSOLUTE 2.05 10/3/uL (0.67-4.30); MEAN CORPUS HGB CONC 28.2 g/dL (32.0-36.0); MEAN CORPUSCULAR HEMOGLOB 25.2 pg (26.0-34.0); MEAN CORPUSCULAR VOLUME 89.1 fL (80-100); MONOCYTES 7.9 %; MONOCYTES ABSOLUTE 0.66 10/3/uL (0.21-1.20); NEUTROPHILS 65.3 %; NEUTROPHILS ABSOLUTE 5.48 10/3/uL (2.02-8.40); PLATELET COUNT 343 10/3/uL (150-400); RBC DISTRIBUTION WIDTH 16.5 % (12.0-16.0); RETICULOCYTE COUNT 4.7 % (0.5-2.5); RETICULOCYTE COUNT ABSOLUTE 153.5 10/3/uL (20.2-119.8); WHITE BLOOD CELLS 8.4 10/3/uL (4.5-10.5)
[2017-03-14 05:19] LABS: MANUAL DIFF NO %
[2017-03-14 05:48] LABS: % IRON SAT 8 % (20-50); BUN (BLOOD UREA NITROGEN) 10 MG/DL (6-23); CALCIUM, SERUM 8.4 MG/DL (8.5-10.4); CHLORIDE, SERUM 92 MMOL/L (96-112); CO2 (CARBON DIOXIDE) 35 MMOL/L (24-34); CREATININE 0.64 MG/DL (0.55-1.02); FERRITIN 23 NG/ML (8-252); GFR AFRICAN AMERICAN 103 ML/MIN (>=60); GFR NON AFRICAN AMERICAN 89 ML/MIN (>=60); GLUCOSE, SERUM 114 MG/DL (60-99); IRON BINDING CAPACITY 561 MCG/DL (225-410); IRON, SERUM 46 MCG/DL (35-150); POTASSIUM, SERUM 4.6 MMOL/L (3.5-5.3); SODIUM, SERUM 131 MMOL/L (135-148)
[2017-03-14] MEDS ORDERED: ELIQUIS 5 MG TAB5 MG PO (11:36)
[2017-03-14] MEDS ORDERED: NOVOLOG SQ (11:37)
[2017-03-14] MEDS ORDERED: DUONEB INH (11:39)
[2017-03-14] MEDS ORDERED: ULTRAM50 PO (11:39)
[2017-03-14] MEDS ORDERED: PULRESP.5 INH (11:39)
[2017-03-14] MEDS ORDERED: BROVANA15 MCG INH (11:39)
[2017-03-14] MEDS ORDERED: P20 PO (11:40)
[2017-03-14] MEDS ORDERED: NYSTATPOW TOP (11:40)
[2017-03-14] MEDS ORDERED: MAGOX4 PO (11:41)
== END 2017-03-15 11:54 | DRG 189 ==
LOC: ENRESERVDT → ENRESERVTM → ENRESERV → ER 11:05 → 7NO 15:44 → MIC 15:44 → 7NO 03-12 11:28
PROVIDERS: Internal Medicine; Internal Medicine Critical Care Medicine; Internal Medicine Pulmonary Disease; Student in an Organized Health Care Education/Training Program
PROC: 02HV33Z Insertion of Infusion Device into Superior Vena Cava, Percutaneous Approach (ICD-10-PCS; principal; 2017-03-11)
DX: J96.22 Acute and chronic respiratory failure with hypercapnia (principal); N17.9 Acute kidney failure, unspecified; I50.33 Acute on chronic diastolic (congestive) heart failure; I24.8 Other forms of acute ischemic heart disease; E87.1 Hypo-osmolality and hyponatremia; J44.1 Chronic obstructive pulmonary disease with (acute) exacerbation; E11.51 Type 2 diabetes mellitus with diabetic peripheral angiopathy without gangrene; E87.5 Hyperkalemia; I25.10 Atherosclerotic heart disease of native coronary artery without angina pectoris; Z95.1 Presence of aortocoronary bypass graft; K21.9 Gastro-esophageal reflux disease without esophagitis; D50.9 Iron deficiency anemia, unspecified; I73.9 Peripheral vascular disease, unspecified; J96.01 Acute respiratory failure with hypoxia; Z79.4 Long term (current) use of insulin; E11.65 Type 2 diabetes mellitus with hyperglycemia; I27.81 Cor pulmonale (chronic); Z99.81 Dependence on supplemental oxygen
CPT/HCPCS: 36600; 71010; 80048; 80069; 80305; 82140; 82533; 82550; 82607; 82728; 82746; 82805; 82962; 83036; 83540; 83550; 83605; 83735; 83880; 84145; 84439; 84443; 84484; 85025; 85045; 85610; 85730; 87040; 87449; 87641; 93005; 93971; 94640; 94660; 96365; 96366; 96375; 97110-GP; 97162-GP; 99285; A9270-GY; C8929; G8978-CM-GP; G8979-CL-GP; J0610; J1750; J2920; J2930; Q9957